=== PATIENT | male | born 2000 | race Caucasian/White ===

== ENCOUNTER 2025-05-31 11:31 | Emergency (ER) | payer OTHER, SELFPAY ==
[2025-05-31 11:33] VITALS: BP 126/66; PULSE 81; RESP 16; TEMP 37; O2SAT 99; BMI 18.6
--- NOTE | 2025-05-31 11:40 | EX.ED.DYSGE1 ---
HPI History of Present Illness Chief Complaint: Fever Informant: patient Onset/Context/Timing Onset: Weeks (1) Context: Gradual Onset Timing: Continuous Quality: Sharp Location: Throat Worsened by: Nothing Relieved by: Nothing Narrative Narrative: Patient presents with a fever that has been persistent over the past week. Patient was diagnosed with strep throat recently. Patient has been on amoxicillin for the past 3 days. Patient states nothing makes his pain better nothing makes it worse. Patient admits to increasing fatigue. Patient states his temperature at home was up to 101. Patient also admits to some rhinorrhea. Patient also admits to a cough. Patient admits to some nausea over the past couple days but denies any vomiting. Patient admits to general myalgias and bodyaches. [facility] Medical History (Updated 05/31/25 @ 14:[address] Darrin Lara DO) Asthma Home Medications ?Medication ?Instructions ?Recorded ?Last Taken ?Type amoxicillin 875 mg-potassium 875 mg PO Q12H #20 TABLETS 05/31/25 Unknown Rx clavulanate 125 mg tablet Allergy/AdvReac Type Severity Reaction Status Date / Time No Known Allergies Allergy Verified 05/31/25 11:32 Surgical History no surgical history no surgical history Social History Smoking Status: Never smoker ROS ROS ED Constitutional Constitutional ED: Reports fever(s); Denies chills Eyes Eyes: Denies blurry vision or change in vision ENT ENT ED: Reports rhinorrhea and sore throat Cardiovascular Cardiovascular: Denies chest pain or palpitations Respiratory/Chest Respiratory/Chest: Reports cough; Denies dyspnea Gastrointestinal Gastrointestinal: Reports nausea; Denies vomiting Genitourinary Genitourinary ED: Denies dysuria or hematuria Musculoskeletal Musculoskeletal: Reports myalgias Integumentary Denies abscess or rash Neurologic Neurologic: Reports headache(s); Denies weakness Allergic/Immunologic Allergic/Immunologic ED: Denies mouth swelling or urticaria EXAM Physical Exam Const Vital Signs: 05/31/25 11:33 05/31/25 12:01 05/31/25 13:42 Temperature 98.6 F 97.8 F Temperature Source Oral Oral Pulse Rate 81 56 L Respiratory Rate 16 18 Respiratory Effort Normal Non-Labored Respiratory Pattern Normal Blood Pressure 126/66 H 113/59 L Blood Pressure Mean 86 77 Pulse Ox 99 97 Oxygen Delivery Method Room Air Room Air Positive well nourished and well developed General Appearance ED: well developed and NAD HEENT Reports moist mucous membranes HEENT Narrative: Oropharynx is erythematous. Airway is patent. There is mild exudate noted. Neck supple and no JVD Neck Narrative: There is tender anterior cervical lymphadenopathy noted. Resp normal respiratory effort and clear to auscultation bilaterally Cardio regular rate and regular rhythm GI non-tender and non-distended Palpation: soft Extremity normal to inspection Neuro oriented x3, CN's II-XII intact bilaterally and no sensory deficits noted Sensorium / Orientation: alert Motor Exam: strength 5/5 throughout Psych mental status grossly normal MDM MDM MDM Narrative Medical decision making narrative: Differential diagnosis includes strep pharyngitis, peritonsillar abscess, parapharyngeal abscess, and dehydration. CBC will be obtained to assess for leukocytosis and anemia. Basic metabolic profile will be obtained to assess for electrolyte abnormality and renal function. CT scan of the soft tissue neck will be obtained to assess for peritonsillar abscess and parapharyngeal abscess. History & Record Review Additional record(s) reviewed:: No prior records Lab Data Attestation: I reviewed the patient's lab results. Lab results narrative: CBC was reviewed and was within normal limits. Basic metabolic profile was reviewed and was within normal limits. Labs: Laboratory Results - last 24 hr 05/31/25 12:36 WBC 4.9 RBC 4.96 Hgb 14.9 Hct 42.4 MCV 85.5 MCH 30.0 MCHC 35.1 RDW Std Deviation 36.2 RDW Coeff of Gian 11.6 Plt Count 163 MPV 9.6 Immature Gran % (Auto) 0.200 Neut % (Auto) 67.8 Lymph % (Auto) 19.3 [place] % (Auto) 12.3 H Eos % (Auto) 0.2 Baso % (Auto) 0.2 Absolute Neuts (auto) 3.3 Absolute Lymphs (auto) 0.94 Nucleated RBC % 0 Differential Comment SCANNED Sodium 138 Potassium 4.6 Chloride 102 Carbon Dioxide 25.4 Anion Gap 11 BUN 11 Creatinine 0.99 Estim Creat Clear Calc 94.09 Est GFR (MDRD) Non-Af 108 BUN/Creatinine Ratio 11.2 Glucose 94 Calcium 8.8 Radiography Diagnostic Testing: Clinical Impression(s) from Imaging Studies Soft Tissue Neck CT 05/31/25 11:58 IMPRESSION: Mild mucosal thickening at the base of the left maxillary sinus. Reading Location: [facility] CT scan of the soft tissue neck was obtained. There is mild mucosal thickening at the base of the left maxillary sinus. There is no parapharyngeal abscess. This was interpreted by the radiologist was also independently reviewed by myself. Treatment and Re-Evaluation :: Patient was given IV fluids. Patient was given a dose of Decadron and Toradol. Patient was given a dose of Unasyn here. Patient was advised of his findings. Patient was instructed to stop taking the amoxicillin. Patient was given a prescription for Augmentin instead. Patient was instructed to follow-up with his primary care physician in 3 to 5 days. Patient was instructed to return if worse in any way. Patient understood and was agreeable with the plan. All questions were answered. Discharge Plan Triage Chief Complaint: Fever ED Provider: Darrin Lara Dx/Rx/DC Orders Clinical Impression: Strep pharyngitis, Asthma Instructions: ED Pharyngitis, Strep (Confirmed) Prescriptions: New amoxicillin-pot clavulanate 875-125 mg tablet 875 mg PO Q12H Qty: 20 0RF Primary Care Provider: Spencer Salazar Referrals: Spnecer Salazar MD [Primary Care Provider] - 3-5 Days Activity Restrictions/Additional Instructions: Stop taking the amoxicillin. Take Augmentin instead. Take Tylenol or ibuprofen as needed for any pain or fevers. Print Language: Bulgarian Disposition Disposition: Home, Self Care
--- NOTE | 2025-05-31 11:58 | CT_ITS ---
PROCEDURE: SOFT TISSUE NECK WITH CONTRAST 05/31/2025 REASON FOR EXAM: PHARYNGITIS 3 day history of strep throat. Patient is on antibiotics. Fever. TECHNIQUE: Procedure Code: CTNEW Modality: CT Procedure: SOFT TISSUE NECK WITH CONTRAST CONTRAST: Isovue 300 VOLUME: 100 mL One or more dose reduction techniques were used (e.g., Automated exposure control, adjustment of the mA and/or kV according to patient size, use of iterative reconstruction technique). RADIATION DOSE SUMMARY: CTDlvol: 13.81 mGy DLP: 438.07 mGycm COMPARISON: None FINDINGS: Airway: Midline and patent. Salivary glands: Unremarkable. Lymph nodes: No cervical lymphadenopathy. Thyroid: Unremarkable. Vasculature: Carotid arteries and internal jugular veins are unremarkable. Orbits: Unremarkable at visualized levels. Paranasal sinuses and mastoids: Mild mucosal thickening at the base of the left maxillary sinus. Lung apices: Clear. Upper mediastinum: Visualized mediastinum is unremarkable. Bones: Unremarkable. Other: CT/Soft Tissue Neck WITH Contrast IMPRESSION: Mild mucosal thickening at the base of the left maxillary sinus. Reading Location: [place] [id number]
[2025-05-31] MEDS: Ketorolac 30 MG/ML Syringe IV (12:21)
[2025-05-31] MEDS: 0.9% Normal Saline (1000mL) 1,000 ML 1000 ML IV (12:22)
[2025-05-31 12:50] LABS: Hematocrit 42.4 % (40-54); Hemoglobin 14.9 g/dL (13.0-16.5); Immature Granulocytes Count 0.010 X10^3/uL (0.0-0.0); Mean Corp Hgb Conc 35.1 g/dL (32-36); Mean Corpuscular Volume 85.5 fL (80-94); Mean Platelet Vol. 9.6 fl (6.2-12.0); NRBC Flagged by Analyzer 0 % (0-5); POSITIVE MORPHOLOGY YES; Platelet Count 163 K/mm3 (150-450); RBC Distribution Width CV 11.6 % (11.6-14.6); RBC Distribution Width SD 36.2 fl (35.1-43.9); Red Blood Count 4.96 M/mm3 (4.6-6.2); White Blood Count 4.9 K/mm3 (4.4-11.0)
[2025-05-31 12:54] LABS: Differential Indicated SCAN CRITERIA MET
[2025-05-31 13:21] LABS: Differential Comment SCANNED
[2025-05-31 13:42] VITALS: BP 113/59; PULSE 56; RESP 18; TEMP 36.6; O2SAT 97
[2025-05-31 14:14] LABS: Anion Gap 11 (5-15); BUN 11 mg/dL (4-19); BUN/Creat Ratio 11.2 RATIO (10-20); Calcium,Total 8.8 mg/dL (7.6-11.0); Carbon Dioxide 25.4 mmol/L (21.0-32.0); Chloride 102 mmol/L (98-108); Estimated Creatinine Clearance 94.09 ml/min (50-250); Glucose 94 mg/dL (70-99); Potassium 4.6 mmol/L (3.3-5.1)
[2025-05-31] MEDS: Ampicillin/Sulbactam 3 GM in 0.9% Normal Saline (100mL MB+) 100 ML IV (14:23)
[2025-05-31 15:17] VITALS: BP 98/60; PULSE 67; RESP 18; TEMP 36.6; O2SAT 97
== END 2025-05-31 15:19 | disposition home or self-care (01) ==
PROVIDERS: Emergency Provider Emergency Medicine; PCP Family Medicine; Visit Provider Emergency Medicine
DX: J02.0 Streptococcal pharyngitis (principal); J45.909 Unspecified asthma, uncomplicated
CPT/HCPCS: 70491; 80048; 85025; 96365; 96375; 99284; Q9967; A4216; J0295